=== PATIENT | male | born 1970 | race Caucasian/White ===

== ENCOUNTER 2024-11-07 17:42 | Outpatient (CLI) | payer MEDICAID, SELFPAY | END 2024-11-07 17:43 | disposition home or self-care (01) | LOC: AMB 11-21 18:20 | PROVIDERS: PCP Family Medicine; Visit Provider Emergency Medicine | DX: S99.912A Unspecified injury of left ankle, initial encounter (principal); F10.129 Alcohol abuse with intoxication, unspecified; W10.9XXA Fall (on) (from) unspecified stairs and steps, initial encounter; Y92.9 Unspecified place or not applicable | CPT/HCPCS: A0425; A0427 ==